=== PATIENT | male | born 1965 ===

== ENCOUNTER → 2017-02-14 | Outpatient (CLI) | payer BC ==
--- NOTE | 2017-02-14 12:59 | CT ---
EXAMINATION TYPE: CT abdomen pelvis w con DATE OF EXAM: 02/14/2017 COMPARISON: NONE INDICATION: Bilateral inguinal hernia DLP: 1795 mGycm, Automated exposure control for dose reduction was used. CONTRAST: 100 mL of Omnipaque 300. Study performed with Oral Contrast TECHNIQUE: Axial images were obtained from above the diaphragm to the pubic rami in the axial plane a t 5 mm thick sections. Reconstructed images are reviewed on the computer in the coronal plane. FINDINGS: Limited CT sections are obtained the lung bases. The lung bases are clear. CT ABDOMEN: Liver: Normal Spleen: Normal Pancreas: Normal Adrenal glands: The adrenal glands are normal. Gallbladder: Normal Kidneys: No masses are evident. No hydronephrosis is present. 5.1 cm cyst on the posterior lateral right mid kidney. This appears to some internal septation. Additional evaluation with ultrasound is r ecommended. Very tiny cortical renal cysts on the mid to inferior pole left kidney Delayed images we re obtained through the kidneys, which remain unremarkable. Aorta: Vascular calcification is within the aorta. Inferior vena cava: Normal. CT PELVIS: Loops of bowel within the abdomen and pelvis are normal. There are loops of bowel which are incom pletely distended or lack oral contrast limiting their evaluation. There is contrast-filled loops of nondilated colon in a left inguinal hernia. Distal sigmoid colon is incompletely distended. Some wall thickening is not excluded although this could be related to nondistention. Mild colitis could be co nsidered. Appendix: Not visualized Urinary bladder: Normal. Genitourinary structures: Prostate is slightly prominent. Osseous structures: No suspicious lytic or sclerotic lesions. Old pubic ramus fractures evident. Sacr oiliac changes are present on the right. Some air appears to be within the spinal canal at the L5 lev el. This could be from disc at L4-5. IMPRESSIONS: 1. Left inguinal hernia containing nondilated colon. 2. Mild wall thickening of distal sigmoid colon may be present. Correlate for colitis versus nondiste ntion. 3. Complex right renal cyst with septation, ultrasound is recommended for additional workup.
== END | disposition home or self-care (01) ==
LOC: RADCTMAIN 09:02
PROVIDERS: ATTEND Surgery
DX: K40.90 Unilateral inguinal hernia, without obstruction or gangrene, not specified as recurrent (principal); N28.1 Cyst of kidney, acquired
CPT/HCPCS: 74177; Q9967

== ENCOUNTER 2017-03-13 10:57 | Observation (INO) | payer BC ==
[~2017-03-13 10:57] MED LIST: HEPARIN SODIUM,PORCINE 5,000 UNIT/ML 1 ML VIAL SQ ONE; Pre Op ABX Message 1 EACH MISC MISCELLANE ONE
[2017-03-13] MEDS ORDERED: ONDANSETRON 4 MG/2 ML VIAL IVP ONE (11:05)
[2017-03-13] MEDS ORDERED: HYDROmorphone 1 MG/ML 1 ML SYRINGE IVP PRN (11:05)
[2017-03-13] MEDS ORDERED: LACTATED RINGERS 1,000 ML IV ONE ×2 (11:05→14:19)
[2017-03-13] MEDS ORDERED: SCOPOLAMINE 1.5MG/72HR PATCH TRANSDERM ONE (11:05)
[2017-03-13] MEDS ORDERED: DEXAMETHASONE SOD PHOSPHATE 10 MG/ML 1 ML VIAL IV ONE (11:05)
[2017-03-13] MEDS ORDERED: ceFAZolin 2 GM in SODIUM CHLORIDE 0.9% 100 ML IVPB ONE (11:15)
[2017-03-13] MEDS: LIDOCAINE 1% 20 ML VIAL (10MG/ML) FOR IV START INTRADERMA PRN ×2 (11:38→11:39)
[2017-03-13] MEDS ORDERED: ONDANSETRON 4 MG/2 ML VIAL ONE (12:03)
[2017-03-13] MEDS ORDERED: MIDAZOLAM 2 MG/2 ML VIAL ONE (12:03)
[2017-03-13] MEDS ORDERED: SUCCINYLCHOLINE CHLORIDE 100 MG/5 ML SYR IV ONE (12:03)
[2017-03-13] MEDS ORDERED: PROPOFOL 10 MG/ML 20 ML VIAL IV ONE (12:03)
[2017-03-13] MEDS ORDERED: fentaNYL (PF) 50 MCG/ML 2 ML AMP ONE (12:03)
[2017-03-13] MEDS ORDERED: NEOSTIGMINE 1 MG/ML 10 ML VIAL ONE (12:03)
[2017-03-13] MEDS ORDERED: ePHEDrine 50 MG/ML 1 ML AMP ONE (12:03)
[2017-03-13] MEDS ORDERED: GLYCOPYRROLATE 0.2 MG/ML 2 ML VIAL ONE (12:03)
[2017-03-13] MEDS ORDERED: LIDOCAINE 1% INJ 10MG/ML (20 ML MDV) ONE (12:03)
[2017-03-13] MEDS ORDERED: HYDROmorphone (PF) 1 MG/ML ONE (12:03)
[2017-03-13] MEDS ORDERED: ROCURONIUM BROMIDE 10 MG/ML 10 ML VIAL IV ONE (12:03)
[2017-03-13] MEDS ORDERED: BUPIVACAINE (PF) 0.25% 30 ML VIAL SQ ONE (13:01)
--- NOTE | 2017-03-13 17:18 | P.OP ---
Date of Procedure: 03/13/17 Preoperative Diagnosis: REcurrent left inguinal herna Postoperative Diagnosis: Recurrent indirect inguinal hernia Procedure(s) Performed: OPen left inguinal hernia repair with mesh Implants: Anesthesia: TYSON Surgeon: Jorgito Carrion Title Inspector #1: Radha Johnson Pathology: none sent Condition: stable Disposition: PACU Indications for Procedure: Operative Findings: Description of Procedure: Patient is a 51-year-old male who had an open left inguinal hernia repair which occurred. He presented with an inner reducible swelling. He has a strong history of exploratory laparotomy for pelvic fracture and right amputation. Due to the previouos midline laparotomy and scars we proceeded with identifying the previous scar. Inhibit her pannus and previous abrasions all skin in the left groin on keeping in mind of these abrasions from previous scar tissue and the fact that there was a previous mesh elected to go a little higher than average for the skin incision. Skin incision was made in the transverse skin crease in the skin and subcutis tissue with the help of electrocautery electrocautery all the way up to the external oblique was infiltrated with 20 mL of local anesthesia and then incised. The incision however wound all the way through both the external/internal oblique and exposed the rectus muscle. It was noted that the external oblique and internal oblique were very densely fused arm on the inferior inferior aspect superiorly there were slightly separable. Meticulous dissection was done and then 2 separate both leaves the internal and the external oblique. This was the plane in which the previous mesh had been placed. Blunt and sharp dissection was done and it took about 45 minutes to be able to separate the external oblique aponeurosis and to identify the surface of the mesh. It was densely adherent to the inguinal ligament and the cord structures and the cord itself was not identifiable. At this time the external oblique opening was continued all the way down to the pubic tubercle medially. The skin incision was increased in the midline fashion over the pubic tubercle and the flap was retracted so as to be able to see the inguinal ligament. The mesh was densely adherent to the inguinal ligament that was obscuring the view of the cord itself. Meticulous dissection which blunt and sharp dissection was done identifying what felt like the cord which was however very very large and very difficult to manipulate were all the scar tissue around it. At this time intraoperative consultation was taken from Dr. Johnson who assisted in identifying and reducing the cord and the hernia sac itself. The hernia contained small bowel which was reduced, after having made an incision with in the internal oblique and transverse versus. Once the bowel was reduced and the posterior abdominal wall was reconstructed with running suture of 2-0 Vicryl. The hernia sac had been completely reduced and skeletonized. At this time I did go out and talk to the family tried to try to obtain a consent for orchiectomy because of the way the recurrence presented in that I will he would benefit from an E ectomy with a mesh to prevent future recurrences. However the patient's family did not give consent and after scrubbing back in the cord structures were completely skeletonized and then an appropriate size Bard Pro medium weight polypropylene mesh was cut to size and sutured to the pubic pubic tubercle and pubic symphysis medially inferiorly onto the inguinal ligament. Stitches were taken through the area which were opened up on the posterior abdominal wall and reinforced in continued with the mesh. The mesh was tucked up underneath the internal oblique over the rectus sheath. The internal and external oblique were closed but due to the previously fused plane of the closure was not complete and had to be reinforced with Carlos's fascia. Subcutaneous tissue was closed with 3-0 Vicryl skin was closed with gary. Patient tolerated the procedure well he was extubated Malik catheter removed and taken to recovery room in stable condition.
[2017-03-13 18:01] VITALS: BMI 29.8
[2017-03-13] MEDS: HYDROmorphone 1 MG/ML 1 ML SYRINGE IVP PRN ×2 (18:22→22:45)
[2017-03-13] MEDS: HEPARIN SODIUM,PORCINE 5,000 UNIT/ML 1 ML VIAL SQ SCH (21:34)
[2017-03-14] MEDS: HYDROmorphone 1 MG/ML 1 ML SYRINGE IVP PRN (02:47)
[2017-03-14] MEDS: HYDROcodone/APAP 5-325MG 1 EACH TAB PO PRN ×2 (07:09→11:13)
[2017-03-14 07:24] VITALS: BP 119/61; PULSE 77; RESP 18; TEMP 97.1
[2017-03-14] MEDS: HEPARIN SODIUM,PORCINE 5,000 UNIT/ML 1 ML VIAL SQ SCH (08:21)
== END 2017-03-14 13:35 | disposition home or self-care (01) ==
LOC: OR 10:57 → 3SUR 16:20 → OR 03-14 03:00 → 3SUR 03-14 04:20
PROVIDERS: ADMIT Surgery; ATTEND Surgery
DX: K40.90 Unilateral inguinal hernia, without obstruction or gangrene, not specified as recurrent (principal)
CPT/HCPCS: 49505; G0378; J2250; J1644 ×2; J1100; J2710; J0690; J2405; J2001; J3010; J1170 ×2; J0330; J2704